=== PATIENT | female | born 1975 | race Caucasian/White ===

== ENCOUNTER 2016-04-16 08:02 | Day surgery (SDC) | payer OTHER ==
[~2016-04-16 08:02] MED LIST: FENTANYL 250 MCG/5 ML AMP IV PRN; LACTATED RINGERS 1,000 ML IV SCH; LIDOCAINE Viscous 2% 15 ML UDCUP PO PRN; MIDAZOLAM HCL 5 MG/5 ML VIAL IV PRN
[2016-04-16] MEDS ORDERED: IV START KIT ONE (08:17)
[2016-04-16] MEDS ORDERED: LIDOCAINE Viscous 2% 15 ML UDCUP ONE (08:54)
[2016-04-16] MEDS ORDERED: FENTANYL 100 MCG/2 ML VIAL ONE (08:54)
[2016-04-16] MEDS ORDERED: MIDAZOLAM HCL 5 MG/5 ML VIAL ONE (08:54)
[2016-04-16 15:26] LABS: HELICOBACTER PYLORII DETECTION NEGATIVE (NEGATIVE)
--- NOTE | 2016-04-18 14:00 | SURGPATH ---
[facility] [address] [place] [id number] Patient Name: MEGHANN YI MR#: [id number] : 1975 Gender: F Specimen #: [id number] Collected: 04/16/2016 Received: 04/17/2016 Reported: 04/18/2016 Submitting Phys: KRISTEN GUZMAN Copy [facility] Phys: [facility] Clinical History / Pre-Operative Diagnosis: Epigastric pain with weight loss; nausea; vomiting; rule out giardia, celiac sprue and gastritis Specimen Source / Surgical Procedure Performed: #1-duodenal biopsy; #2-antral biopsy; #3-antral polyp Interpretation: 1. DUODENUM, BIOPSY: - NO PATHOLOGIC DIAGNOSIS 2. GASTRIC ANTRUM, BIOPSY: - MILD CHRONIC GASTRITIS 3. GASTRIC ANTRUM, POLYP, BIOPSY: - HYPERPLASTIC POLYP Electronically Signed Out Peter Roman M.D. Gross Description: #1 The specimen is received in a formalin filled container labeled with the patient's name and "duodenal biopsy". Two shaffer biopsies are each 0.3 cm. Totally embedded in cassette #1. #2 The specimen is received in a formalin filled container labeled with the patient's name and "antral biopsy". Two urbina biopsies are 0.3 and 0.5 cm. Totally embedded in cassette #2. #3 The specimen is received in a formalin filled container labeled with the patient's name and "antral polyp". A polypoid red-shaffer biopsy is 0.7 x 0.6 x 0.5 cm. Bisected. Totally embedded in cassette #3. Taylor White Microscopic Description: 1. Levels reveal small intestinal mucosa with a normal villous architecture. Ulceration, acute inflammation, granulomas, intraepithelial lymphocytosis, Giardia organisms, dysplasia and malignancy are not seen. 2. Levels reveal gastric mucosa with mildly increased numbers of chronic inflammatory cells in the lamina propria. Ulceration, acute inflammation, dysplasia and malignancy are not identified. A Helicobacter immunostain is performed revealing the absence of organisms. 3. Levels of the bisected polyp reveal elongated and dilated glands lined by foveolar type epithelium. Patchy inflammation is present throughout the polyp. (Analyte-specific reagents (ASR) are used in many laboratory tests necessary for standard medical care and generally do not require FDA approval. This test was developed and its performance characteristics determined by [facility]. It has not been cleared or approved by the U.S. Food and Drug Administration. [facility] is certified under the Clinical Laboratory Improvement Amendments of 1988 as qualified to perform high complexity clinical laboratory testing. All controls stain as expected.) 1: 58173 2: 93098, 38126 3: 41994 K29.30 K31.7
== END 2016-04-16 10:00 | disposition home or self-care (01) ==
LOC: SDC 08:02
PROVIDERS: ATTEND Internal Medicine Gastroenterology
PROC: 0DB68ZX Excision of Stomach, Via Natural or Artificial Opening Endoscopic, Diagnostic (ICD-10-PCS; principal; 2016-04-16)
DX: K29.70 Gastritis, unspecified, without bleeding (principal); K29.80 Duodenitis without bleeding; K31.7 Polyp of stomach and duodenum; M79.1 Myalgia; F32.9 Major depressive disorder, single episode, unspecified
CPT/HCPCS: 87081; 43251; J3010; J2250; A9270